=== PATIENT | female | born 1965 | race Caucasian/White ===

== ENCOUNTER 2021-12-01 11:06 | Outpatient (CLI) | payer OTHER, SELFPAY ==
--- NOTE | 2021-12-03 21:39 | WPDHOMESLEEP ---
Sleep Study - Home Unattended Date of Study: 12/01/21 Ordering Provider: Louis Roberto, Interpreting Provider: Celina Edgar MD Home Sleep Study Type: Apnea Link Air Height: 1.52 m Weight: 104.326 kg Body Mass Index: 44.9 Neck Circumference (inches): 14 Cable: 4 Reason for Sleep Study Waking at night to urinate, prior history of CPAP use Sleep History Sri Owens is a 56 year old female with Difficulty sleeping, waking 3-4 times at night to urinate. She previously has used CPAP. She has difficulty falling asleep, she wakes throughout the night and occasionally awakens from sleep feeling short of breath. She occasionally awakens at night with heartburn, belching or coughing. She frequently snores but this is not loud enough that others complain about it. She occasionally has trouble sleeping with a cold. She rarely gasps for breath at night. She does not have breathing problems at night observed by others. She occasionally sweats excessively at night, rarely notices her heart pounding or beating irregularly at night. She does not fall asleep during the day, does not fall asleep involuntarily or while driving. She does not have loss of muscle tone with extreme emotion. She does not have daytime difficulties due to excessive sleepiness. She does not feel paralyzed on waking or falling asleep. She occasionally has vivid dreamlike scenes upon awakening or falling asleep and occasionally feels afraid to go to sleep. She does not have nightmares. She rarely remembers her dreams. She occasionally has racing thoughts. She does not feel sad or depressed. She frequently has anxiety and frequently has muscular tension. She occasionally notices parts of her body jerking. She occasionally kicks at night. She frequently has aching in her legs and frequently has leg pain during the night. She occasionally has morning jaw pain. She does not grind her teeth during sleep. She frequently has bothered by back pain during the day. She occasionally is awakened by pain at night. She frequently wakes up feeling stiff in the morning, occasionally with sore or achy muscles. She occasionally wakes up with pain in the neck and spine. She has headaches, palpitations, memory problems, fatigue, and insomnia. Normal bedtime is 10:00 p.m. falling asleep within 30 minutes or sometimes up to an hour. She typically wakes 3-4 times at night to go to the bathroom. On average she may stay awake 30 minutes or longer. Her wake-up time is 6:00 a.m.. On the weekends, she goes to bed later, between 11:00 p.m. and 12 midnight. She wakes by 7:00 a.m. on the weekends. She estimates getting 5 hours of sleep at night. She does not take naps. A short nap is not refreshing. She is usually tired on waking. She feels better in the afternoon compared to the morning. Habits: Tear smoked tobacco. No caffeine, alcohol or recreational drugs. [facility] Past Medical History Medical History (Updated 12/03/21 @ 21:46 by Celina Edgar MD) Anxiety and depression Obstructive sleep apnea Surgical History Surgical History (Updated 12/03/21 @ 21:46 by Celina Edgar MD) History of arthroscopy of knee History of tubal ligation Social History Social History (Updated 12/03/21 @ 21:46 by Celina Edgar MD) Smoking status: Never smoker Alcohol intake: never Substance use: never Medications Medications: Hand written list: lorazepam 0.5 mg b.i.d. for anxiety, Zoloft 150 mg daily for depression Sleep Procedure This test was performed using 4 channel monitoring including respiratory effort channel, snoring channel, heart rate channel, and oxygen saturation channel. This study was scored using [facility] guidelines. Sleep Architecture Not applicable for home sleep test. Respiratory Analysis The recording time is 8 hours and 16 minutes. The flow duration is 8 hours and 4 minutes. The oxygen saturation evaluation duration is 8 hours a
[2021-12-03 21:51] VITALS: BMI 44.9
== END 2021-12-02 12:34 | disposition home or self-care (01) ==
LOC: ANHCSM 11:07
PROVIDERS: PCP Family Medicine; Visit Provider Family Medicine
DX: G47.33 Obstructive sleep apnea (adult) (pediatric) (principal); Z68.41 Body mass index [BMI] 40.0-44.9, adult
CPT/HCPCS: 95806

== ENCOUNTER 2022-02-15 07:44 | Outpatient (CLI) | payer OTHER, SELFPAY ==
--- NOTE | 2022-02-15 09:00 | EST_ITS ---
Patient Info Name: Sri Owens Age: 56 years : 1965 Gender: Female Ht: 61 in Wt: 234 lbs BSA: 2.20 m2 HR: 60 bpm BP: 146 / 76 mmHg Heart Rhythm: Sinus Rhythm Technical Quality: Good Exam Date: 02/15/2022 9:13 AM Exam Location: [facility] Patient Status: Outpatient Admit Date: 02/15/2022 Staff Ordering Physician: Felisa, Louis BYERS Attending Provider: Felisa, Louis BYERS Exercise Technologist: Leah Peterson ACADEMIC ADMINISTRATOR Exercise Physician: Sandrita Alejandre CEP Exam Type: CA stress rosalio w NM Study Info Indications Palpitations - CP - A nuclear stress test was performed. History/Risk Factors Obesity. Summary 1. 1. Negative lexiscan stress test for ischemic ST changes by ECG criteria. 2. 2. Baseline hypertension. 3. 3. Nuclear scan to follow and will be reported separately. Please correlate with it. Protocol: LEXISCAN Stress ECG Details Stage: REST Duration (min): 1 min : 11 sec HR (bpm): 61 SBP (mmHg): 146 DBP (mmHg): 76 Stage: REST Duration (min): 6 min : 12 sec HR (bpm): 65 SBP (mmHg): 146 DBP (mmHg): 76 Stage: STAGE 1 Duration (min): 0 min : 24 sec HR (bpm): 61 SBP (mmHg): 146 DBP (mmHg): 76 Stage: RECOVERY Duration (min): 0 min : 35 sec HR (bpm): 80 SBP (mmHg): 146 DBP (mmHg): 76 Stage: RECOVERY Duration (min): 1 min : 35 sec HR (bpm): 84 SBP (mmHg): 146 DBP (mmHg): 76 Stage: RECOVERY Duration (min): 2 min : 35 sec HR (bpm): 77 SBP (mmHg): 191 DBP (mmHg): 78 Stage: RECOVERY Duration (min): 3 min : 35 sec HR (bpm): 73 SBP (mmHg): 191 DBP (mmHg): 78 Stage: RECOVERY Duration (min): 4 min : 35 sec HR (bpm): 70 SBP (mmHg): 135 DBP (mmHg): 74 Stage: RECOVERY Duration (min): 5 min : 35 sec HR (bpm): 67 SBP (mmHg): 135 DBP (mmHg): 71 Stage: RECOVERY Duration (min): 6 min : 8 sec HR (bpm): 68 SBP (mmHg): 135 DBP (mmHg): 71 Rest HR: 65 bpm Peak HR: 86 bpm Rest Sys BP: 146 mmHg Peak Sys BP: 191 mmHg Max Pred HR: 165 bpm % Max Pred HR: 52 % Target HR: 140 bpm Max RPP: 16,426 bpm*mmHg Termination Reason: Completed Protocol Cardiac Symptoms: flushing Total Time: 0 min : 24 sec Rest Garcia BP: 76 mmHg Peak Garcia BP: 78 mmHg Total Dose: 0.4 mg Resting ECG Normal sinus rhythm - normal ECG. Stress ECG No abnormal ST/T wave changes. Arrhythmias None. Report Signatures
--- NOTE | 2022-02-15 15:45 | WPDCARIOSTRE ---
Nuclear Stress Test INDICATIONS Indications: Chest pain PROCEDURE Procedure Performed: Myocardial Perf Spect-Multi Procedure: Patient underwent a lexiscan stress test and immediately was injected with 32.1 mCi of cardiolyte. Multiple tomographic images were obtained. These are of poor quality. Cannot determine any perfusion defects given poor quality of study. A separate resting images were obtained after patient was injected with 11.0 mCi of cardiolyte. Multiple tomographic images were obtained. These are of poor quality. Cannot determine any perfusion defects given poor quality of study. CONCLUSION Conclusion: 1. Technically suboptimal myocardial perfusion imaging and cannot assess for perfusion defects. 2. Consider stress echocardiogram or CT Angiogram of heart for further evaluation if clinically indicated.
--- NOTE | 2022-02-15 15:49 | NST_ITS ---
Addendum [facility] [employer] [facility] had reprocessed images and asked me to re-interpret images. Indications Chest pain Procedure Procedure Performed: Myocardial Perf Spect-Multi Procedure: Patient underwent a lexiscan stress test and immediately was injected with 32.1 mCi of cardiolyte. Multiple tomographic images were obtained. These are of adequate quality. There is evidence of large size, severe anterior, small size, severe apical, and small size, severe inferior perfusion defects during stress imaging. A separate resting images were obtained after patient was injected with 11.0 mCi of cardiolyte. Multiple tomographic images were obtained. These are of adequate quality. There is evidence of large size, severe anterior, small size, severe apical, and small size, severe inferior perfusion defects during rest imaging. Conclusion 1.. Myocardial perfusion imaging demonstrating fixed large anterior, fixed small apical, and fixed small inferior perfusion defects suggestive of breast and diaphragmatic attenuation artifacts. 2. No evidence of reversible ischemia. 3. Left ventriculogram demonstrates normal measured ejection fraction of 64% with no wall motion abnormalities. 4. TID score 1.[address] normal[address] Dictated by Dr. Eulalio Cooney 02/24/22 08:02 This report was recreated on February 23, 2022. Original report was signed by Dr. Eulalio Cooney on February 15, 2022 at 1549. Nuclear Stress Test INDICATIONS Indications: Chest pain PROCEDURE Procedure Performed: Myocardial Perf Spect-Multi Procedure: Patient underwent a lexiscan stress test and immediately was injected with 32.1 mCi of cardiolyte. Multiple tomographic images were obtained. These are of poor quality. Cannot determine any perfusion defects given poor quality of study. A separate resting images were obtained after patient was injected with 11.0 mCi of cardiolyte. Multiple tomographic images were obtained. These are of poor quality. Cannot determine any perfusion defects given poor quality of study. CONCLUSION Conclusion: 1. Technically suboptimal myocardial perfusion imaging and cannot assess for perfusion defects. 2. Consider stress echocardiogram or CT Angiogram of heart for further evaluation if clinically indicated. Dictated By: Eulalio Cooney DO 02/15/22 1545 Signed By: <Electronically signed by Eulalio Cooney DO> 02/15/22 1549 [facility]
== END 2022-02-15 07:45 | disposition home or self-care (01) ==
LOC: CHSCARD 07:48
PROVIDERS: PCP Family Medicine; Visit Provider Family Medicine
DX: R07.9 Chest pain, unspecified (principal)
CPT/HCPCS: 78452; 93017; A9502; J2785

== ENCOUNTER 2022-05-14 08:03 | Outpatient (CLI) | payer OTHER, SELFPAY ==
--- NOTE | ~2022-05-14 | US_ITS ---
EXAMINATION: US right upper quadrant DATE: 05/14/2022 10:04 INDICATION: Right upper quadrant and flank pain TECHNIQUE: Multiple grayscale and Doppler ultrasound images of the abdomen were obtained. COMPARISON: None available FINDINGS: Bowel gas obscures visualization of the pancreas. The visualized portions of the pancreas a re unremarkable. The liver is normal with normal echogenicity and echotexture. No surface nodularity. Normal hepatopetal flow in the main portal vein. Stones are present in the nondistended gallbladder. There is no gallbladder wall thickening or pericholecystic fluid. The normal common bile duct measur es 4 mm. There was no sonographic Scott sign. IMPRESSION: 1. Cholelithiasis without evidence of cholecystitis. Reviewed, dictated and finalized at location B.
== END 2022-05-14 08:04 | disposition home or self-care (01) ==
LOC: CHSIMG 08:04
PROVIDERS: PCP Family Medicine; Visit Provider Family Medicine
DX: R10.9 Unspecified abdominal pain (principal)
CPT/HCPCS: 76705

== ENCOUNTER 2024-08-13 15:57 | Outpatient (RCR) | payer OTHER, SELFPAY ==
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
--- NOTE | 2024-08-20 10:17 | OPREHPOC ---
Outpatient Therapy Plan of Care This is a Multidisciplinary Plan of Care that may contain components documented by all disciplines (PT, OT, and ST.) PT Problem 1 PT Problem #1 Knowledge Deficit PT Goal 1 Goal / Goal Update Pt will be independent in HEP to address R foot/ ankle mobility. Target Visit 2 PT Problem 2 PT Problem #2 Impaired Range of Motion PT Goal 1 Goal / Goal Update Pt to demonstrate improved passive R great toe extension to 50 degrees. Pt to improve great toe extension ROM to reduce tensile load on plantar fascia during weight bearing activities. R knee active flexion to 130 degrees Target Visit 10 PT Problem 3 PT Problem #3 Impaired Strength PT Goal 1 Goal / Goal Update Pt to improve R inversion strength to 5/5. Pt to improve R ankle inversion strength for improved medial arch support with functional activities. bilateral knee extension strength to 5/5 Target Visit 10 PT Problem 4 PT Problem #4 Impaired Functional Mobility PT Goal 1 Goal / Goal Update 1. patient to perform squat with safe mechanics and no increased pain in the knees or R foot 2. patient to ambulate up and down steps with reciprocal mechanics and no increased pain carrying 10lbs.
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
--- NOTE | 2024-08-23 07:21 | PCPTNOTE ---
Cancelled session today.
--- NOTE | 2024-08-30 15:19 | PCPTNOTE ---
Cancelled session. Reports she is not feeling well.
== END 2024-08-27 20:00 | disposition home or self-care (01) ==
LOC: CHSPT 15:57
PROVIDERS: Visit Provider Family Medicine
DX: M72.2 Plantar fascial fibromatosis (principal)
CPT/HCPCS: 97110; 97140; 97161